=== PATIENT | female | born 1990 | race American Indian/Alaskan Native ===

== ENCOUNTER 2020-11-04 01:48 | Emergency (ER) | payer BC ==
[2020-11-04] MEDS ORDERED: DIPHtheria,PERTUSSIS(ACELL),TETANUS VACCINE/PF 0.5 ML VIAL IM ONE (03:35)
[2020-11-04] MEDS ORDERED: IBUPROFEN 600 MG TAB PO ONE (03:35)
[2020-11-04] MEDS ORDERED: LIDOCAINE-MPF (1%) 10 MG/1 ML VIAL 5 ML INFILTRATI ONE (03:35)
--- NOTE | 2020-11-04 05:15 | Cat Scan Report ---
CT cervical spine wo con INDICATION: Fall - intoxicated on alcohol. TECHNIQUE: Axial CT images of the cervical spine were obtained. Sagittal and coronal reformatted images were pro duced. All CT scans at this location are performed using CT dose reduction for ALARA by means of auto mated exposure control. COMPARISON: None available. FINDINGS: ALIGNMENT: Normal alignment. VERTEBRAE: No fracture. Vertebral body heights are preserved. C1 and C2 are congruent. SPONDYLOSIS: No significant spondylosis. SOFT TISSUES: No significant soft tissue abnormality. ADDITIONAL FINDINGS: Calcifications inferior to the central C1 arch is likely related to sequela of l ungs, costophrenic tendinitis.. IMPRESSION: 1. No fracture of the cervical spine. Signer Name: Richie Srivastava MD Signed: 11/04/2020 5:11 AM Workstation Name: [id number]
--- NOTE | 2020-11-04 05:19 | Cat Scan Report ---
CT head/brain wo con INDICATION: Fall - intoxicated on alcohol. TECHNIQUE: Routine CT head. All CT scans at this location are performed using CT dose reduction for A ANGELA by means of automated exposure control. COMPARISON: None. FINDINGS: Intracranial: Prasad-white matter differentiation is maintained. No intracranial hemorrhage. No extra a xial collection. No hydrocephalus. No herniation. Sinuses: Mucosal thickening of the left maxillary sinus, anterior ethmoid air cells, and frontal sinu s which could represent an ostiomeatal unit complex obstruction. Hyperostosis of the maxillary sinus mar is consistent with chronicity.Mucosal thickening is also present within the left sphenoid sinus . Orbits: Globes are intact. Calvarium: No acute fracture. IMPRESSION: 1. No acute intracranial abnormality. Signer Name: Richie Srivastava MD Signed: 11/04/2020 5:14 AM Workstation Name: [id number]
--- NOTE | 2020-11-04 05:24 | Emergency Department Report ---
ED Fall HPI - General Chief Complaint: Wound/Laceration Stated Complaint: JAW/NECK LACERATION Source: patient Mode of arrival: Ambulatory - History of Present Illness Initial Comments: Patient is a 30-year-old -[place]ong[place] female with a history of chronic low back pain who presents to the ED with complaint of acute onset persistent lightheadedness and bleeding chin laceration with pain after she slipped, lost balance and fell down on a concrete ground on the street while walking from a bar where she had been drinking alcohol with her friends and family. Patient states that she hit her chin on the pavement and sustained the bleeding laceration. Patient states that she is not up-to-date with her tetanus vaccinations. Patient denies dental injuries, headache, dizziness, syncope, seizures, neck pain, chest pain or shortness of breath, loss of consciousness, abdominal pain, back pain, numbness and tingling or weakness of upper and lower extremities bilaterally. MD Complaint: fall, other (Chin laceration, alcohol intoxication) -: Sudden, hour(s) (1) Fall From: standing When Fall Occurred: [address] [employer] Fall Witnessed: yes, by family Place Fall Occurred: street Loss of Consciousness: none Prolonged Down Time?: no Location: head, face Severity: moderate Severity scale (0 -10): 5 Quality: sharp, aching Context: tripped/slipped, alcohol use Associated Symptoms: denies, lightheaded. denies: headache, neck pain, numbness, weakness, chest paint, shortness of breath, abdominal pain, hematuria, unable to walk, vertigo, confusion - Related Data Previous Rx's Medication Instructions Recorded Last Taken Type Ibuprofen [Motrin] 600 mg PO Q8H PRN #24 tablet 11/04/20 Unknown Rx cephALEXin [Keflex] 500 mg PO Q6HR #40 capsule 11/04/20 Unknown Rx Allergies Allergy/AdvReac Type Severity Reaction Status Date / Time No Known Allergies Allergy Unverified 11/04/20 03:15 ED Review of Systems ROS: Stated complaint: JAW/NECK LACERATION Other details as noted in HPI Constitutional: denies: chills, fever Eyes: denies: eye pain, eye discharge, vision change ENT: other (Bleeding painful chin laceration). denies: ear pain, throat pain Respiratory: denies: cough, shortness of breath, wheezing Cardiovascular: denies: chest pain, palpitations, syncope, paroxysmal nocturnal dyspnea Endocrine: no symptoms reported Gastrointestinal: denies: abdominal pain, nausea, vomiting, diarrhea Genitourinary: denies: urgency, dysuria, discharge Musculoskeletal: myalgia. denies: back pain, joint swelling, arthralgia Skin: other (Bleeding chin laceration). denies: rash, lesions Neurological: other (Lightheadedness). denies: headache, weakness, paresthesias Psychiatric: denies: anxiety, depression Hematological/Lymphatic: denies: easy bleeding, easy bruising ED Past Medical Hx - Past Medical History Previous Medical History?: Yes Additional medical history: Chronic Back Pain - Surgical History Past Surgical History?: No - Social History Smoking Status: Never Smoker Substance Use Type: Alcohol - Medications Home Medications: Home Medications Medication Instructions Recorded Confirmed Last Taken Type Ibuprofen [Motrin] 600 mg PO Q8H PRN #24 tablet 11/04/20 Unknown Rx cephALEXin [Keflex] 500 mg PO Q6HR #40 capsule 11/04/20 Unknown Rx ED Physical Exam - General Limitations: No Limitations General appearance: alert, in no apparent distress, anxious - Head Head exam: Present: other (Bleeding 3 cm chin laceration) - Eye Eye exam: Present: normal appearance, PERRL, EOMI Pupils: Present: normal accommodation - ENT ENT exam: Present: normal orophraynx, mucous membranes moist, TM's normal bilaterally, normal external ear exam, other (Bleeding 3 cm chin laceration) - Neck Neck exam: Present: normal inspection, full ROM. Absent: tenderness - Respiratory Respiratory exam: Present: normal lung sounds bilaterally. Absent: respiratory distress, wheezes, rhonchi, stridor, chest wall tenderness, accessory muscle use, decreased breath sounds - Cardiovascular Cardiovascular Exam: Present: normal rhythm, tachycardia, normal heart sounds. Absent: systolic murmur, diastolic murmur, rubs, gallop - GI/Abdominal GI/Abdominal exam: Present: soft, normal bowel sounds. Absent: distended, tenderness, guarding, rigid, hyperactive bowel sounds, hypoactive bowel sounds, organomegaly - Extremities Exam Extremities exam: Present: normal inspection, full ROM, normal capillary refill - Back Exam Back exam: Present: normal inspection, full ROM. Absent: tenderness, CVA tenderness (R), CVA tenderness (L), muscle spasm, paraspinal tenderness - Neurological Exam Neurological exam: Present: alert, oriented X3, CN II-XII intact, normal gait, reflexes normal - Psychiatric Psychiatric exam: Present: normal affect, normal mood, anxious - Skin Skin exam: Present: warm, dry, intact, normal color, other (Bleeding 3 cm chin laceration). Absent: rash ED Course Vital Signs 11/04/20 11/04/20 03:04 04:16 Temperature 98.6 F Pulse Rate 101 H Respiratory 18 18 Rate Blood Pressure 145/85 O2 Sat by Pulse 98 Oximetry - Laceration /Wound Repair Anterior Face Wound Location: face (Chin laceration) Wound Length (cm): 3 Wound's Depth, Shape: superficial, linear Wound Explored: contaminated Irrigated w/ Saline (ccs): 100 Betadine Prep?: Yes Anesthesia: 1% Lidocaine Volume Anesthetic (ccs): 4 Wound Debrided: extensive Wound Repaired With: sutures Suture Size/Type: 5:0, proline Number of Sutures: 8 Layer Closure?: No Progress: The wound was cleaned thoroughly with normal saline and Betadine. Lidocaine 1% solution was infiltrated around the wound, using a total of 4 cc. When anesthesia was fully achieved, the wound was sutured using Prolene 4-0, achieving a total of 8 sutures. The wound was then cleaned and dressed with a Band-Aid. Patient tolerated the procedure well. ED Medical Decision Making - Radiology Data Radiology results: report reviewed, image reviewed The head CT scan without contrast The head CT scan without contrast showed no acute intracranial abnormalities or hemorrhage. There is however an incidental finding of chronic pansinusitis extending from the left ethmoid, left maxillary and frontal sinuses with significant obstruction. C-spine CT scan without contrast The C-spine CT scan without contrast showed no acute cervical disc or spine fractures and subluxation. - Medical Decision Making This is a 30-year-old -[place] female with a history of chronic low back pain who presents to the ED with complaint of acute onset persistent lightheadedness and bleeding chin laceration with pain after she slipped, lost balance and fell down on a concrete ground on the street while walking from a bar where she had been drinking alcohol with her friends and family. Patient states that she hit her chin on the pavement and sustained the bleeding laceration. Patient states that she is not up-to-date with her tetanus vaccinations. In the ED, patient is alert and oriented x3 and is not in distress but appears intoxicated on alcohol however patient is acting normal and answering questions appropriately. Patient was treated for pain in the ED with Motrin and also given booster tetanus vaccinations. The chin laceration wound was cleaned thoroughly and sutured per protocol. Patient tolerated the procedure well. The wound was then cleaned and dressed with a Band-Aid. The head CT scan without contrast showed no acute intracranial abnormalities or hemorrhage. However there was incidental finding of chronic extensive pansinusitis characterized by significant obstruction of left maxillary, left ethmoid and frontal sinuses. The C-spine CT scan without contrast showed no acute cervical disc of spine fractures and subluxations. On reevaluation, patient's pain is well controlled medications. Patient was discharged home pain medications and prophylactic antibiotics, and was advised to follow-up with her primary care physician in 7 to 10 days for reevaluation or return to the ED immediately if symptoms get worse. Patient was also advised to return to the ED or to her primary care physician in 8 to 10 days for suture removal. - Differential Diagnosis Facial contusion; chin laceration; scalp contusion; facial bone fractures Critical care attestation.: If time is entered above; I have spent that time in minutes in the direct care of this critically ill patient, excluding procedure time. ED Disposition Clinical Impression: Chronic recurrent sinusitis Contusion of face, scalp and neck Qualifiers: Encounter type: initial encounter Qualified Code(s): S00.83XA - Contusion of other part of head, initial encounter; S00.03XA - Contusion of scalp, initial encounter; S10.93XA - Contusion of unspecified part of neck, initial encounter Laceration of chin Qualifiers: Encounter type: initial encounter Qualified Code(s): S01.81XA - Laceration without foreign body of other part of head, initial encounter Disposition: DC-01 TO HOME OR SELFCARE Is pt being admited?: No Does the pt Need Aspirin: No Condition: Stable Instructions: Sinusitis, Adult, [id number], Contusion, [id number], Sutured Wound Care, [id number], Laceration Care, Adult, [id number] Additional Instructions: The head CT scan without contrast showed no acute intracranial abnormalities or hemorrhage. There was however incidental finding of chronic sinusitis. The C- spine CT scan without contrast showed no acute cervical disc or spine fractures and subluxations. Therefore take medications with food, drink plenty of fluids and follow-up with your primary care physician in 7 to 10 days for reevaluation. Return to the ED immediately if your symptoms get worse. Otherwise return to the ED or to your primary care physician in 8 to 10 days for suture removal. Prescriptions: cephALEXin [Keflex] 500 mg PO Q6HR #40 capsule Ibuprofen [Motrin] 600 mg PO Q8H PRN #24 tablet PRN Reason: Pain Referrals: [facility] [Provider Group] - 7-10 days Time of Disposition: 05:33 Print Language: TURKISH
[2020-11-04 05:51] VITALS: BP 133/58
== END 2020-11-04 06:04 | disposition home or self-care (01) ==
LOC: EDSEX → ED 01:48
DX: S01.81XA Laceration without foreign body of other part of head, initial encounter (principal); J32.9 Chronic sinusitis, unspecified; W01.0XXA Fall on same level from slipping, tripping and stumbling without subsequent striking against object, initial encounter; Y93.89 Activity, other specified; Y92.410 Unspecified street and highway as the place of occurrence of the external cause; Y99.8 Other external cause status
CPT/HCPCS: 70450; 72125; 90471; 90715